=== PATIENT | female | born 1970 | race Caucasian/White ===

== ENCOUNTER → 2024-09-15 08:22 | Outpatient (REF) | payer OTHER, SELFPAY | LOC: RCS 08:22 | PROVIDERS: ATTENDING PHYSICIAN Student in an Organized Health Care Education/Training Program | DX: R53.83 Other fatigue (principal); R42 Dizziness and giddiness; I10 Essential (primary) hypertension | CPT/HCPCS: 93306 ==

== ENCOUNTER → 2024-10-31 13:46 | Outpatient (REF) | payer OTHER, SELFPAY | LOC: HWWDC 13:46 | PROVIDERS: ATTENDING PHYSICIAN Student in an Organized Health Care Education/Training Program | DX: Z12.31 Encounter for screening mammogram for malignant neoplasm of breast (principal) | CPT/HCPCS: 77063; 77067 ==

== ENCOUNTER → 2024-12-23 14:42 | Outpatient (REF) | payer OTHER, SELFPAY | LOC: HWRAD 14:42 | PROVIDERS: ATTENDING PHYSICIAN Student in an Organized Health Care Education/Training Program | DX: M25.512 Pain in left shoulder (principal) | CPT/HCPCS: 73030 ==

== ENCOUNTER 2025-02-22 15:17 | Day surgery (SDC) | payer OTHER, SELFPAY ==
[2025-02-22] VITALS (8 sets, daily range): BP systolic 124–161; BP diastolic 73–89
[2025-02-22 07:12] LABS: Hematocrit 40.7 % (37.0-47.0); Hemoglobin 13.6 g/dL (12.0-16.0); Mean Corp Hgb Conc. 33.4 g/dL (33.0-37.0); Mean Corpuscular Volume 85.3 fL (81.0-99.0); Nucleated Red Blood Cells % 0 %; Platelet Count 290 10^3/uL (130-400); Red Cell Dist. Width 13.4 % (11.5-14.5)
[2025-02-22 07:36] LABS: ALT (SGPT) 189 U/L (0-35); AST (SGOT) 389 U/L (14-36); Albumin 4.7 g/dl (3.5-5.0); Alkaline Phosphatase 94 U/L (38-126); Blood Urea Nitrogen 22 mg/dl (7-17); Calcium 9.4 mg/dl (8.4-10.2); Carbon Dioxide 28 mmol/L (22-30); Chloride 104 mmol/L (98-107); Glucose 112 mg/dl (70-99); Lipase 208 U/L (23-300); Potassium 3.9 mmol/L (3.5-5.1); Sodium 140 mmol/L (135-145); Total Protein 7.5 g/dl (6.3-8.2); eGFR > 60.00
--- NOTE | 2025-02-22 08:31 | ED.GENMED ---
History of Present Illness
General
Chief Complaint: Abdominal Pain
Time Seen by Provider: 02/22/25 08:30
History of Present Illness
History of Present Illness:
FOCUSED PAST MEDICAL HISTORY
- On GLP-1
REVIEW OF OLD RECORDS
- The patient was seen in the Emergency Department 2022 related to hypertension
Note:
CHIEF COMPLAINT(S)
Upper abdominal pain
HISTORY OF PRESENT ILLNESS
The patient is a 54-year-old female who presents with acute upper abdominal pain that began at approximately 3:00 AM. The pain is localized to the upper abdomen with tenderness in the epigastric area and radiates slightly but does not extend into
the back. The patient describes the pain as severe, stating she is experiencing significant discomfort. There is no history of similar episodes, and she denies any lower abdominal or back pain. The patient has a history of transvaginal hysterectomy
but retains her gallbladder. Blood work reveals a normal white blood cell count but elevated liver enzymes, including total bilirubin at 1.8, and elevated transaminases. Her pancreas function appears normal based on current blood work. The patient
denies fever and has noticeable tenderness upon palpation, particularly in the midline of the upper abdomen.
PAST MEDICAL AND SURGICAL HISTORY
The patient underwent a transvaginal hysterectomy. She is currently on a GLP-1 receptor agonist, Semaglutide, for obesity, which initially presented with hypertension and elevated A1C, though these have resolved.
CHRONIC MEDICAL CONDITIONS SIGNIFICANTLY AFFECTING CARE
Obesity
Hypertension (on Losartan, dose increased from 50 mg to 100 mg recently)
Previously elevated A1C
MEDICATIONS
Semaglutide 12.5 mg for weight loss
Losartan 100 mg for hypertension
PHYSICAL EXAM
General: Appears uncomfortable, moaning and writhing in pain.
Skin: Warm, dry.
Head: Normocephalic, atraumatic.
Neck: Supple, trachea midline.
Eyes, Ears, Nose, and Throat: Oral mucosa moist.
Cardiovascular: Normal peripheral perfusion, no edema.
Respiratory: Respirations are non-labored.
Gastrointestinal: Tenderness in the epigastrium and right upper quadrant with pain upon palpation.
Back: Normal range of motion and alignment.
Musculoskeletal: Normal ROM, normal strength.
Neurological: Alert and oriented to person, place, time, and situation, no focal neurological deficit observed.
Psychiatric: Cooperative, appropriate mood & affect.
PLAN
1. Initiate pain management with narcotic analgesics.
2. Administer stomach acid reducers, such as Famotidine, to manage gastric discomfort.
3. Provide nausea medication and intravenous fluids.
4. Perform an abdominal ultrasound to evaluate the gallbladder and liver.
5. Assess and monitor the patients response to the medication and fluid interventions.
6. Follow-up with the patients primary care physician for additional liver and kidney function tests as planned.
DIFFERENTIAL DIAGNOSIS
The Differential Diagnosis includes, in no particular order and is not limited to:
1. Cholecystitis
2. Hepatitis
3. Peptic ulcer disease
4. Gastritis
5. Pancreatitis
6. Gallstones
7. Gastroesophageal reflux disease (GERD)
8. Liver disease
9. Duodenal ulcer
10. Biliary colic
RADIOLOGY
- Ultrasound obtained which shows calculous cholecystitis
EKG
- Sinus 63, no acute ST abnormality, artifact noted in V5
LABS
- CBC unremarkable, creatinine 0.9, total bili 1.8, AST 389, ALT 189, lipase normal
SUMMARY OF ENCOUNTER
The patient, a 54-year-old female, presented to the emergency department with acute upper abdominal pain localized to the epigastric area. Upon evaluation, tenderness was confirmed in the epigastric region. Subsequent imaging revealed the presence
of gallstones and signs of gallbladder inflammation, suggesting possible cholecystitis. During the visit, the pain resolved, which can occur with gallstones without infection. Pain management included the administration of analgesics.
MANAGEMENT OF THE PATIENTS CARE WAS DISCUSSED WITH
A consultation was conducted with the surgical team to discuss the patients condition and potential need for further surgical intervention.
PLAN
1. Initiate pain management with appropriate analgesics.
2. Administer medications for gastric discomfort.
3. Monitor the patients response to pain management in the emergency department.
4. Await recommendations from surgical consultation regarding potential cholecystitis management.
INDEPENDENT REVIEW OF LABS AND INTERPRETATION OF TESTS
My independent review of liver function tests shows elevated liver enzymes, including total bilirubin at 1.8, and elevated transaminases.
My independent review of the abdominal ultrasound interpretation reveals the presence of gallstones and signs of gallbladder inflammation.
MEDICATION RECONCILIATION
Administered pain medication for severe abdominal pain.
MEDICAL DECISION MAKING
-Complexity of Data Reviewed: Chronic conditions affecting care include obesity and hypertension managed with losartan. Differential diagnosis includes cholecystitis, hepatitis, peptic ulcer disease, gastritis, pancreatitis, gallstones, GERD, liver
disease, duodenal ulcer, and biliary colic.
-Data:
Category 1
The following testing was considered and ordered: abdominal ultrasound.
Category 3
Discussion of management with surgical team regarding potential intervention for identified gallbladder inflammation.
DIAGNOSIS
Acute calculous cholecystitis
UPDATE
- Patient appeared very uncomfortable upon arrival was given Dilaudid, Pepcid, Zofran, fluid
- Onset severe epigastric and RUQ pain 3am today.
- On a GLP1 chronically w/ no change in dosing
- TBili 1.8, AST 389, ALT 189 (all new), WBC and lipase normal
- US c/w calculous cholecystitis
- Feels much improved now w/ only minimal tenderness currently
- Discussed with Dr. Sandhu -he accepts to his service for likely OR later today
- Has history of hysterectomy and high blood pressure
Past History
Past History
ED Past Medical History: HTN, Hypercholesterolemia and Psychiatric (Anxiety and depression)
ED Past Surgical History: Gynecological (Hysterectomy)
Social History
Tobacco: Non-smoker
Alcohol: Occasional
Drug: None
Personal: Other (Seperated)
Living: with family
Employment: Employed
Family History
Family History: Other (Noncontributory)
Phy Exam
Physical Exam
Physical Exam:
See HPI
Course
Orders/Labs/Results
Orders:
Orders
02/22/25 06:51
ECG [Electrocardiogram (*1)] Urgent
Reason for Study: Other
Other Reason for Exam: EPIGASTRIC PAIN
EKG- Treatment ONCE
02/22/25 07:03
Complete Blood Count/With Diff Urgent
Comprehensive Metabolic Panel Urgent
Lipase Urgent
02/22/25 08:37
0.9% Sodium Chloride 1000 ml [Nss] 1,000 ml IV BOLUS
Famotidine [Pepcid] 20 mg IV NOW STA
HYDROmorphone [Dilaudid] 1 mg IV NOW STA
Ondansetron Injectable [Zofran] 4 mg IV NOW STA
US Abdomen Complete/Upper Urgent
Comment:
Reason For Exam: severe upper abd pain; high LFTs
Abnormal Lab Results
02/22/25
07:03
MPV 10.6 H fL
(7.4-10.4)
Abs Immat Gran (auto) 0.1 H 10^3/uL
(0-0.05)
Immature Gran % 0.8 H %
(0-0.5)
Neutrophils % 75.7 H %
(42.2-75.2)
Lymphocytes % 18.4 L %
(20.5-51.1)
BUN 22 H mg/dl
(7-17)
Glucose 112 H mg/dl
(70-99)
Total Bilirubin 1.8 H mg/dl
(0.2-1.3)
AST 389 H U/L
(14-36)
ALT 189 H U/L
(0-35)
02/22/25 07:03
02/22/25 07:03
Vital Signs
Initial and Last Documented VS:
Initial Vital Signs
Temp Pulse BP Pulse Ox
37.2 C 78 161/89 100
02/22/25 06:51 02/22/25 06:51 02/22/25 06:51 02/22/25 06:51
Last Documented Vital Signs
Temp Pulse Resp BP Pulse Ox
37.2 C 78 16 124/74 98
02/22/25 06:51 02/22/25 11:23 02/22/25 11:23 02/22/25 11:23 02/22/25 11:23
*Pulse Oximetry
SaO2: 100
Oxygen Mode of Delivery: Room air
Patient hypoxic: no
*Critical Care Note
Total Time (30-74mins, 75-104mins- exclusive of procedures): Not Applicable
ED Attending Note
-
Portions of this chart may have been created with voice recognition software.� Occasional wrong word or��sound alike� substitutions may have occurred due to the inherent limitations of voice recognition software.
Discharge Plan
Departure
Patient Disposition: Admit
Date of Disposition: 02/22/25
Time of Disposition: 11:46
Presentation/result/management discussed w/ accepting MD/DO: dr sandhu
Discharge Problem:
Acute calculous cholecystitis
Prescriptions:
No Action
clonazepam 1 mg Tablet
1 mg PO DAILYPRN PRN (Reason: anxiety)
Theragen Tablet
1 tab PO DAILY
losartan 100 mg Tablet
100 mg PO DAILY
duloxetine 60 mg Capsule,Delayed Release(Dr/Ec)
60 mg PO DAILY
Zepbound 12.5 mg/0.5 mL Pen Injector
12.5 mg SC FR
Referrals:
Ariadne Turpin MD [Family Provider, General]
Interventions
Interventions:
*General Assessment Last Done: 02/22/25 06:56
*Neglect/Abuse Screening Last Done: 02/22/25 06:56
*ED COVID-19 Vaccine History Last Done: 02/22/25 09:15
*ED Influenza Vaccine History Last Done: 02/22/25 09:15
[facility] Fall Risk Assessment Tool Last Done: 02/22/25 09:15
*Risk Screen - Suicide (C-SSRS) Last Done: 02/22/25 09:16
*Nursing Disposition Last Done: 02/22/25 09:19
YT-[id number]-[id number] Assessment Last Done: 02/22/25 09:15
Discharge Date and Time
Print Language: PASHTO
[2025-02-22] MEDS: ZOFRAN 4 MG IV (08:59)
[2025-02-22] MEDS: DILAUDID 1 MG IV ×2 (09:00→21:41)
[2025-02-22] MEDS: PEPCID 20 MG IV (09:03)
[2025-02-22] MEDS: NSS 1000 IV (09:04)
--- NOTE | 2025-02-22 11:01 | CON.GS ---
Addendum entered and electronically signed by Paulie Sandhu MD 02/22/25 12:49:
I was physically present and personally performed the castro portions of the surgical evaluation and/or procedure with the resident. I discussed the findings, reviewed the resident�s note, and confirmed the medical decision-making. I provided direct
supervision as required and agree with the assessment and plan as documented with the following additions/corrections:
acute onset abd pain from last night, localized to epigastrium/ruq, a/w nausea but not vomiting, denies f/c; pain improved after Dilaudid but has not resolved. RUQ ttp; no leukocytosis, LFTs elevated, US with stones, GBWT, PCF, no ductal dilation.
OCTOR for rCCY with cholang
Original Note:
Consultation
-
Date/Time Consultation Requested: 02/22/2025
Date/Time Consultation Performed: 02/22/2025 11:01AM
Requesting Provider: Dr. Sotomayor
Performing Provider: Paulie Sandhu
Reason for Consultation: Acute Cholecystitis
Medical History
-
Chief Complaint: Abdominal Pain
History of Present Illness:
This is a 54 y/o female with pmhx of essential hypertension and obesity on a GLP1 agonist who presented to the ED today with acute onset of severe, sharp abdominal pain. She reports she ate dinner last night around 11PM (Ch[employer] Salad with fried
chicken, chocolate covered gummy bears), then shortly afterwards went to sleep. She was awoken abruptly around 3:00AM with severe upper abdomen tenderness radiating slightly towards the right side. It did not radiate to her back. She states the pain
worsened, and was accompanied by nausea without vomiting. Eventually she decided to report to the ED. She has never had pain like this before. She has never been told she she has gallstones before.
In the ED she was given Dilaudid for pain, as well as Zofran, Pepcid and IV fluids. At the time of my interview she is free of nausea and has some mild, not bothersome pain that is worsened when people touch her abdomen. She has had no fevers,
chills, diarrhea or constipation. She has not vomited. She has not eaten since 11PM on 02/21.
Past Medical History
Past Medical History: HTN, Hypercholesterolemia and Other (Anxiety, Depression)
Past Surgical History: Gynecological (Hysterectomy) and Other (Bilateral breast reduction)
Social History
Tobacco: Non-Smoker
Alcohol: None
Drug: None
Personal:
Living: With Family
Employment: Not Employed
Family History
Family History: Reviewed & Not Pertinent
Allergies / Home Medications
Allergy/AdvReac Type Severity Reaction Status Date / Time
levofloxacin (From Levaquin) Allergy Anaphylaxis Verified 02/22/25 10:04
sulfamethoxazole (From Allergy oral ulcers Verified 02/22/25 10:04
Bactrim)
trimethoprim (From Bactrim) Allergy oral ulcers Verified 02/22/25 10:04
�Medication �Instructions �Recorded �Confirmed �Type
venlafaxine 150 mg 225 mg PO DAILY 02/27/06/24/16 History
capsule,extended release 24 hr
(Effexor XR)
lisinopril 10 mg tablet 10 mg PO DAILY #30 tabs 06/24/16 Rx
multivitamin (Daily Multiple 1 tab PO DAILY 06/24/16 06/24/16 History
tablet)
omeprazole 40 mg capsule,delayed 40 mg PO DAILY #30 caps 06/24/16 Rx
release
albuterol sulfate 90 mcg/actuation 2 puff inhalation R Q4HPRN PRN 04/13/17 Rx
aerosol inhaler Wheezing and Cough ##1
doxycycline hyclate 100 mg capsule 100 mg PO Q12 Pneumonia #19 caps 04/13/17 Rx
oseltamivir 75 mg capsule 75 mg PO BID Influenza #9 caps 04/13/17 Rx
promethazine 6.25 mg-codeine 10 5 ml PO Q4HPRN PRN Cough #120 mL 04/13/17 Rx
mg/5 mL syrup
Review of Systems
-
History Source: Patient
Constitutional: No Symptoms
EENT: No Symptoms
Respiratory: No Symptoms
Cardiac: No Symptoms
Abdomen/GI: Abdominal Pain and Nausea
Musculoskeletal: No Symptoms
Hematologic/Lymphatic: No Symptoms
A 10 point review of systems was completed, and was negative except as per HPI.
Physical Exam
Vital Signs
Temp Pulse BP Pulse Ox
98.9 F 78 161/89 100
02/22/25 06:51 02/22/25 06:51 02/22/25 06:51 02/22/25 08:32
Lab Results
02/22/25 07:03
02/22/25 07:03
WBC 7.3 10^3/uL (4.8-10.8) 02/22/25 07:03
Hgb 13.6 g/dL (12.0-16.0) 02/22/25 07:03
Hct 40.7 % (37.0-47.0) 02/22/25 07:03
Plt Count 290 10^3/uL (130-400) 02/22/25 07:03
Abs Immat Gran (auto) 0.1 10^3/uL (0-0.05) H 02/22/25 07:03
Neutrophils % 75.7 % (42.2-75.2) H 02/22/25 07:03
Physical Exam
General: Well Developed, Well Nourished, No Apparent Distress and Comfortable
HEENT: Normocephalic
Respiratory: Clear
Cardiac: S1/S2 and Regular Rhythm
GI: Soft, Non Distended and Tender (Mild epigastric tenderness on palpation as well as right upper quadrant tenderness on palpation)
Rectal: Deferred by Provider
Skin: Warm and Dry
Neuro: Awake, Alert and Oriented
Psych: Calm
Assessment / Plan
-
Assessment:
This is a 54 y/o female with pmhx of essential hypertension and obesity on a GLP1 agonist who presented to the ED today with acute onset of severe, sharp abdominal pain found to have acute cholecystitis on ultrasound of the abdomen.
Plan:
Acute Cholecystitis
Ultrasound of Abdomen 02/22: Cholelithiasis, gallbladder wall thickening, and pericholecystic fluid.
AST 389, ALT 189, total bilirubin 1.8 in the ED compared to normal levels in 2022
WBC normal at 7.3 in the ED
Overall laboratory and physical exam findings are consistent with acute cholecystitis.
Reviewed results of her ultrasound with her. Pathophysiology of acute cholecystitis was explained to her, including risk of recurrence of pain if gallbladder is not removed.
At this time she is agreeable to plan for cholecystectomy. Will admit her to surgery service
Plan for laparoscopic cholecystectomy later today. She has been added to the OR schedule already. The procedure has been explained to her including risks of bleeding, infection and need for possible open procedure. Typical recovery following
cholecystectomy was discussed. All questions were answered to her satisfaction at this time.
Continue to remain NPO until surgery
Continue PRN pain control as needed until surgery
Essential Hypertension
Continue home Losartan
Obesity
Continue Zepbound for weight loss
[2025-02-22] MEDS: DILAUDID 0.5 MG IV (14:25)
[2025-02-22] MEDS: ZOSYN 50 IV ×2 (14:26→20:37)
[2025-02-22] MEDS: NORMOSOL-R/PLASMALYTE-A 1000 IV (14:47)
--- NOTE | 2025-02-22 17:14 | OR.RPT ---
Operative Report
Operative Report
Primary Surgeon: Phoebe
Assisting: Jovani MCCULLOUGH
Pre-op Diagnosis: Acute calculous cholecystitis
Post-op Diagnosis: Same
Procedure Performed: Robotic cholecystectomy
Anesthesia Type: GETA
Specimen / Cultures: Gallbladder
Estimated Blood Loss: 3cc
Complications: None immediate
Operative Findings: Softly distended inflamed gallbladder with omental adhesions and wall edema
DOS: 02/22/25
Indications: This 54F developed right upper quadrant/epigastric pain and on workup was found to have cholelithiasis, with elevated liver enzymes and normal sized ducts. Laparoscopic cholecystectomy with robotic assist and with cholangiogram was
planned. Unfortunately the c-arm machine was down and cholangiogram unable to be performed.
Description of procedure: The patient was placed on the operating table in the supine position. General anesthesia was induced. A time-out was completed verifying correct patient, procedure, site, positioning, and special equipment prior to
beginning this procedure. An orogastric tube was placed. The abdomen was prepped and draped in the usual sterile fashion. A stab incision was made in left upper quadrant and the Veress needle was inserted. Proper position was confirmed by aspiration
and saline meniscus test. The abdomen was insufflated with carbon dioxide to a pressure of 12 mmHg. The patient tolerated insufflation well.
An 8mm optical trocar was then inserted in the left upper quadrant. The laparoscope was inserted and the abdomen inspected. Additional 8mm trocars were then inserted in the following locations: above the umbilicus, right mid clavicular line at the
level of the umbilicus and 6cm lateral to this on the right. The abdomen was inspected and no abnormalities were found. The table was placed in the reverse Trendelenburg position with the right side up. Dense omental adhesions to the gallbladder
fundus were taken down carefully. The dome of the gallbladder was grasped with an atraumatic grasper and retracted over the dome of the liver. The infundibulum was grasped with an atraumatic grasper and retracted toward the right lower quadrant.
The gallbladder wall was edematous. This maneuver exposed Calot�s triangle. The cystic duct and cystic artery were dissected out until the only two structures entering the gallbladder were these two structures. The common duct was protected.
The cystic artery was controlled with bipolar and divided. The cystic duct was doubly clipped and divided. The gallbladder was dissected free from the liver bed. The posterior plane was thickened and edematous. Hemostasis was assured and the
gallbladder and contained stones were removed using an endoscopic retrieval bag placed through the umbilical port. The gallbladder was passed off the table as a specimen. There was no evidence of bleeding from the gallbladder fossa or cystic artery
or leakage of the bile from the cystic duct stump. The umbilical trocar site was closed at the fascial level laparoscopically with 2-0 PDS. Secondary trocars were removed under direct vision and noted to be hemostatic. The laparoscope was withdrawn
and the umbilical trocar removed. The abdomen was allowed to collapse. The skin was closed with subcuticular sutures of 4-0 monocryl and topical skin adhesive. The orogastric tube was removed.
The patient tolerated the procedure well and was taken to the postanesthesia care unit in stable condition.
[2025-02-22] MEDS: CYMBALTA DELAYED RELEASE 60 MG PO (20:39)
[2025-02-22] MEDS: LOVENOX 40 MG SC (20:46)
--- NOTE | 2025-02-22 21:20 | PTCARENOTE ---
Patient recieved from PACU, drowsy but oriented x3 and able to answer questions. Call vinson within reach.
[2025-02-23] MEDS: DILAUDID 1 MG IV ×2 (01:30→12:38)
[2025-02-23] MEDS: ZOSYN 50 IV ×4 (01:30→20:14)
[2025-02-23] MEDS: NORMOSOL-R/PLASMALYTE-A 1000 IV ×2 (06:09→17:25)
[2025-02-23 07:00] VITALS: BP 133/79
[2025-02-23] MEDS: DILAUDID 0.5 MG IV (08:03)
[2025-02-23] MEDS: CYMBALTA DELAYED RELEASE 60 MG PO (08:05)
[2025-02-23 08:27] LABS: Hematocrit 35.0 % (37.0-47.0); Hemoglobin 11.7 g/dL (12.0-16.0); Mean Corp Hgb Conc. 33.4 g/dL (33.0-37.0); Mean Corpuscular Volume 85.6 fL (81.0-99.0); Platelet Count 252 10^3/uL (130-400); Red Cell Dist. Width 13.4 % (11.5-14.5)
--- NOTE | 2025-02-23 09:05 | W.PN.GS2 ---
Today's Communication / Plan
-
Poss DC
Assessment / Plan
-
54F POD1 s/p rCCY, planned cholangiogram unable to be performed due to equipment issues
AFVSS, labs pending
Plan:
Trend LFTs, if improved, would plan for DC home today
Reg diet
DVT ppx
Abx while inpatient
Ambulate
Subjective Data
-
Date of Service: February 23, 2025
AFVSS, ambulating, voiding, has not eaten yet, pain controlled
Objective Data
-
Intake and Output
02/22/25 02/23/25 02/24/25
06:59 06:59 06:59
Intake Total 100 / 100 1200 / 1200
Balance 100 / 100 1200 / 1200
Intake:
IV fluids (Total) 100 / 100 1200 / 1200
Normosol 100 / 100
Other:
Number of approximated MODERATE 3
amounts of urine
Vital Signs
Temp Pulse Resp BP Pulse Ox
98.2 F 65 16 133/79 97
02/23/25 07:00 02/23/25 07:00 02/23/25 07:00 02/23/25 07:00 02/23/25 07:00
Lab Results
02/23/25 07:54
Calcium 9.4 mg/dl (8.4-10.2) 02/22/25 07:03
Total Bilirubin 1.8 mg/dl (0.2-1.3) H 02/22/25 07:03
AST 389 U/L (14-36) H 02/22/25 07:03
ALT 189 U/L (0-35) H 02/22/25 07:03
Alkaline Phosphatase 94 U/L (38-126) 02/22/25 07:03
Total Protein 7.5 g/dl (6.3-8.2) 02/22/25 07:03
Albumin 4.7 g/dl (3.5-5.0) 02/22/25 07:03
Physical Exam
-
Gen: NAD
Abd: soft, approp ttp, incisions cdi with glue
Patient has a torres catheter: No
Patient has a central line: No
[2025-02-23 09:57] LABS: ALT (SGPT) 556 U/L (0-35); AST (SGOT) 425 U/L (14-36); Albumin 3.9 g/dl (3.5-5.0); Alkaline Phosphatase 111 U/L (38-126); Blood Urea Nitrogen 14 mg/dl (7-17); Calcium 8.4 mg/dl (8.4-10.2); Carbon Dioxide 25 mmol/L (22-30); Chloride 104 mmol/L (98-107); Glucose 112 mg/dl (70-99); Potassium 3.8 mmol/L (3.5-5.1); Sodium 135 mmol/L (135-145); Total Protein 6.3 g/dl (6.3-8.2); eGFR > 60.00
[2025-02-23] MEDS: NORMOSOL-R/PLASMALYTE-A IV (10:27)
--- NOTE | 2025-02-23 14:28 | CM ---
Patient seen bedside, initial assessment completed. Patient is a 54 y/o female with pmhx of essential hypertension and obesity on a GLP1 agonist who presented to the ED today with acute onset of severe, sharp abdominal pain. Robotic cholecystectomy
this admission.
Patient resides w/ her daughter and son in a [facility], 3 steps to enter. Patient is independent in all areas. No DME. No therapy or HC hx.
Drives (+). Currently employed.
PCP: Ariadne Turpin
Pharmacy: [facility]
Plan: Home, no needs
[2025-02-23 15:00] VITALS: BP 155/78
[2025-02-23] MEDS: LOVENOX 40 MG SC (17:26)
[2025-02-23] MEDS: TORADOL 10 MG IV (17:32)
[2025-02-23] MEDS: COZAAR 100 MG PO (20:32)
[2025-02-23 23:04] VITALS: BP 144/85
[2025-02-24] MEDS: ZOSYN 50 IV ×2 (01:49→07:49)
[2025-02-24 06:58] LABS: Hematocrit 36.5 % (37.0-47.0); Hemoglobin 12.2 g/dL (12.0-16.0); Mean Corp Hgb Conc. 33.4 g/dL (33.0-37.0); Mean Corpuscular Volume 85.3 fL (81.0-99.0); Platelet Count 222 10^3/uL (130-400); Red Cell Dist. Width 13.4 % (11.5-14.5)
[2025-02-24 07:10] VITALS: BP 160/94
[2025-02-24 07:32] LABS: ALT (SGPT) 400 U/L (0-35); AST (SGOT) 175 U/L (14-36); Albumin 4.1 g/dl (3.5-5.0); Alkaline Phosphatase 95 U/L (38-126); Blood Urea Nitrogen 9 mg/dl (7-17); Calcium 8.6 mg/dl (8.4-10.2); Carbon Dioxide 29 mmol/L (22-30); Chloride 105 mmol/L (98-107); Glucose 91 mg/dl (70-99); Potassium 4.1 mmol/L (3.5-5.1); Sodium 138 mmol/L (135-145); Total Protein 6.8 g/dl (6.3-8.2); eGFR > 60.00
[2025-02-24] MEDS: CYMBALTA DELAYED RELEASE 60 MG PO (07:49)
--- NOTE | 2025-02-24 10:46 | W.PN.GS2 ---
Addendum entered and electronically signed by Paulie Sandhu MD 02/24/25 10:50:
I saw and examined the patient.
The Compliance Monitor's note was reviewed and I agree with the note.
Comment: LFTs improved, abd pain improved, ambulating, voiding, wild PO, exam approp, OK for DC home. No need for further abx upon DC
Original Note:
Today's Communication / Plan
-
dispo planning
Assessment / Plan
-
54F POD 2 s/p rCCY, planned cholangiogram unable to be performed due to equipment issues
AFVSS
Bilirubin trending down, tolerating diet without pain
No leukocytosis
Plan:
Reg diet
Analgesics as needed
DVT ppx
Abx while inpatient
Ambulate
Subjective Data
-
Date of Service: February 24, 2025
Pt seen and examined at bedside with Dr. Sandhu. Denies n/v. Tolerating diet. Feeling better overall.
Objective Data
-
Intake and Output
02/23/25 02/24/25 02/25/25
06:59 06:59 06:59
Intake Total 100 / 100 3207 / 3207
Balance 100 / 100 3207 / 3207
Intake:
IV fluids (Total) 100 / 100 3107 / 3107
Normosol 100 / 100
IV piggybacks 100 / 100
Other:
Number of approximated MODERATE 3 1
amounts of urine
Number of approximated LARGE 4
amounts of urine
Vital Signs
Temp Pulse Resp BP Pulse Ox
98.2 F 61 16 160/94 97
02/24/25 07:10 02/24/25 07:10 02/24/25 07:10 02/24/25 07:10 02/24/25 07:10
Lab Results
02/24/25 06:44
02/24/25 06:44
Calcium 8.6 mg/dl (8.4-10.2) 02/24/25 06:44
Total Bilirubin 1.9 mg/dl (0.2-1.3) H 02/24/25 06:44
Direct Bilirubin 0.1 mg/dl (0.0-0.4) 02/24/25 06:44
AST 175 U/L (14-36) H 02/24/25 06:44
ALT 400 U/L (0-35) H 02/24/25 06:44
Alkaline Phosphatase 95 U/L (38-126) 02/24/25 06:44
Total Protein 6.8 g/dl (6.3-8.2) 02/24/25 06:44
Albumin 4.1 g/dl (3.5-5.0) 02/24/25 06:44
Physical Exam
-
Gen: NAD
Abd: soft, approp ttp, incisions cdi with glue and some ecchymosis
Patient has a torres catheter: No
Patient has a central line: No
--- NOTE | 2025-02-24 10:51 | W.DS.TRANS ---
Addendum entered and electronically signed by KAREN Zarate 02/24/25 13:13:
dictated #[id number]
Original Note:
DC Summary - Operations Asst
-
Discharge Instructions:
Discharge Diagnosis/Procedures Acute calculous cholecystitis status post
robotic cholecystectomy
Diet As tolerated
Additional Diets If you have loose stools after surgery switch to
a low-fat diet
Activity No strenuous activity
Additional Activity Do not lift over 20 pounds for the next 2 to 3
weeks
Driving Restrictions Do not drive if taking narcotics
Bathing Restrictions OK to Shower
Wound Care Glue will flake off your incisions over the next
2 weeks. Avoid soaking in tubs or pools for 1
week.
Instructions:
Stand-Alone Forms:
Changes to Home Medications: No
Discharge Medications:
DC Medications w/original date entered in [facility]
clonazepam 1 mg tablet 1 mg PO DAILYPRN PRN anxiety 02/22/25
duloxetine 60 mg capsule,delayed release 60 mg PO DAILY 02/22/25
losartan 100 mg tablet 100 mg PO DAILY 02/22/25
therapeutic multivitamin 1 tab PO DAILY 02/22/25
tirzepatide (weight loss) 12.5 mg/0.5 mL subcutaneous pen injector (Zepbound) 12.5 mg SC FR 02/22/25
acetaminophen 325 mg tablet 650 mg (2 x 325 mg) PO Q4HPRN PRN mild pain #1 tab 02/24/25
ibuprofen 200 mg tablet 400 - 600 mg (2 - 3 x 200 mg) PO Q6HPRN PRN moderate pain #1 tab 02/24/25
tramadol 50 mg tablet 50 mg PO Q6HPRN PRN severe pain #10 tabs 02/24/25
Home Medication Changes
Pending Results: No
[2025-02-24 11:23] VITALS: BP 150/92
--- NOTE | 2025-02-24 11:56 | PTCARENOTE ---
Patient for discharge to home. Discharge instructions and medications reviewed with patient. IV removed. Tramadol script sent to patient's pharmacy. Patient ambulated, accompanied by son, to main lobby, for discharge to home.
== END 2025-02-24 12:38 | disposition home or self-care (01) ==
LOC: SDS 15:17
PROVIDERS: ATTENDING PHYSICIAN Surgery; EMERGENCY PHYSICIAN Emergency Medicine; FAMILY PHYSICIAN Family Medicine Geriatric Medicine
DX: K81.0 Acute cholecystitis (principal); K66.0 Peritoneal adhesions (postprocedural) (postinfection); R74.01 Elevation of levels of liver transaminase levels
CPT/HCPCS: 47562; 76700; 80053; 82248; 83690; 85025; 85027; 88304; 93005; 96361; 96374; 96375; 99285